=== PATIENT | female | born 1985 | race African-American/Black ===

== ENCOUNTER 2016-12-11 17:36 | Observation (INO) | payer OTHER ==
[~2016-12-11] VITALS: Ht 160 cm; Wt 60.3 kg
[2016-12-11] MEDS ORDERED: ACETAMINOPHEN 500MG TABLET PO SCH (19:15)
== END 2016-12-11 20:15 | disposition home or self-care (01) ==
LOC: L&D 17:36
PROVIDERS: ADMIT Specialist; ATTEND Specialist
DX: O26.892 Other specified pregnancy related conditions, second trimester (principal); R10.9 Unspecified abdominal pain; Z3A.21 21 weeks gestation of pregnancy
CPT/HCPCS: 76805; 99281; G0378